=== PATIENT | male | born 1955 | race Caucasian/White ===

== ENCOUNTER 2018-12-22 23:55 | Emergency (ER) | payer BC, OTHER ==
[~2018-12-22] VITALS: Ht 177.8 cm; Wt 113.4 kg
--- OUTSIDE RECORDS SUMMARY | 2018-12-23 00:02 | XMS REPORT | Continuity of Care Document ---
Author Author No Choudhury [facility] No Choudhury [facility] Address Unknown Phone Unavailable Care Team Providers Care Food Server Name Role Phone CAITLYN JO DO PCP Insurance Providers Guarantor Fazal Hobbs V Address [address] [place] [address] Payer [facility] Policy Number [id number] Subscriber's Name Fazal Hobbs V Relationship 01 Self / Same As Patient Group Number [id number] Group Name [id number] Problems Active Problems Medical Problem Onset Date Status A-fib Unknown Chronic Chest pain Unknown Resolved HTN (hypertension) Unknown Chronic Heart palpitations Unknown Acute Hyperlipidemia Unknown Chronic Muscle spasm of left shoulder area ~04/12/2016 Medications Current Home Medications Medication Dose Units Route Directions Days Qty Instructions Start Date Aspirin 81 Mg Tab 81 Mg Oral Daily for Hypertension 30 Tablet 11/13 Atorvastatin Calcium 10 Mg Tab 10 Mg Oral Daily for Hypercholesterolemia 30 Tablet 11/13/15 Cyclobenzaprine Hcl 10 Mg/Nilesh Tab 1 Tab Oral Every 8 Hours As Needed for Spasm 30 Tablet 04/12/16 Hydrochlorothiazide (Esidrix) 25 Mg Tab 25 Mg Oral Daily for Hypertension 30 Tablet 11/13/15 Levothyroxine Sodium (Synthroid) 75 Mcg Tab 75 Mcg Oral Daily for Hypothryroidism 30 Tablet 11/13/15 Lisinopril 10 Mg Tab 10 Mg Oral Daily for Hypertension 30 Tablet Methylprednisolone (Medrol Dosepak) 4 Mg Nilesh 4 Mg Oral As Directed for Inflammation 1 Nilesh take all pills in day's row once daily with food Past Home Medications Medication Directions Ordered Status Oxycodone/Acetaminophen (Percocet 5/325) 1 Tab/1 Un Tab, 1 Tab Oral Every 6 Hours As Needed 07/27/12 Discontinued Family History Relationship Condition Age at Onset Recorded Date/Time 03 Father FH: brain tumor Not Recorded 04/12/2016 3:35pm 03 Father Family history of hypertension Not Recorded 04/12/2016 3:35pm 03 Mother FH: cancer Not Recorded 04/12/2016 3:35pm 03 Mother Family history of hypertension Not Recorded 04/12/2016 3:35pm Social History Social History Problem Response Recorded Date/Time Onset Date Status Hx Alcohol Use No 04/12/2016 3:35pm Not Applicable Not Applicable Hx Substance Use No 04/12/2016 3:35pm Not Applicable Not Applicable Smoking Status Never smoker 04/12/2016 3:35pm Not Applicable Not Applicable Query Response Start Date Stop Date Smoking Status Never smoker Hospital Discharge Instructions Discharge Instructions Provider Instructions Dismiss home You were seen today by JENNA RYAN APRN Follow up with Primary Care Physician in 3-7 days if worsens or does not resolve Rest Ice - Apply ice pack to area of interest - 30 minutes on then 30 minutes off or use heating pad whichever feels best Continue over the counter pain medication as per package directions. Take steroids daily in am with food. Take muscle relaxants as prescribed. Gentle range of motion exercises. PCP Information Caitlyn Jo DO [address] [place] [address] Plan(s) based on screenings Calculated Body Mass Index: 36.10 BMI Follow-up plan: BMI is above normal, follow-up with Primary Care Provider Blood Pressure #1 Blood Pressure Systolic: 142 mm Hg Blood Pressure Diastolic: 78 mm Hg Preventative Blood Pressure Follow-up plan: BP is Pre-Hypertensive, follow-up with Primary Care Provider Plan of Care Discharge Date 04/12/16 4:22pm Instructions/Education Provided Muscle Strain (ED) Musculoskeletal Pain (ED) Prescriptions See Medication Section Functional Status No functional status results. Allergies, Adverse Reactions, Alerts No known allergies. Immunizations Query Response on File Recorded Date/Time Hx Hepatitis A Vaccination Yes 11/13/15 10:38am Vital Signs Acute Vital Signs Vital Response Date/Time Blood Pressure 142/78 mm Hg 04/12/2016 3:37pm Blood Pressure Mean 99 mm Hg 04/12/2016 3:37pm Temperature (Fahrenheit) 97.9 degrees F (96.0 - 99.9) 11/13/2015 10:15pm Temperature (Calculated Celsius) 36.15197 degrees C 11/13/2015 10:15pm Temperature (Calculated Celsius) 36.32531 degrees C (36.4 - 37.5) 04/12/2016 3:37pm Temperature (Fahrenheit) 97.2 degrees F (96.0 - 99.9) 04/12/2016 3:37pm Temperature Source Oral 11/13/2015 10:15pm Temperature Source Oral 11/13/2015 8:13am Pulse Pulse Rate (adult) 64 bpm (60 - 100) 11/13/2015 10:15pm Pulse Rate (adult) 66 bpm (60 - 100) 04/12/2016 3:37pm Pulse Rate: ED 55 bpm 11/13/2015 10:17am Respiratory Rate 18 breaths per minute (10 - 20) 11/13/2015 10:15pm Respiratory Rate 16 bpm (10 - 20) 04/12/2016 3:37pm Height (Feet) 5 ft 04/12/2016 3:37pm Height (Inches) 10.0 in. 04/12/2016 3:37pm Weight (Pounds) 251.5 lbs 04/12/2016 3:37pm Height 5 ft 10 in 04/12/2016 3:37pm Weight 251.50 lb 04/12/2016 3:37pm Body Mass Index 36.1 kg/m^2 04/12/2016 3:37pm Results Laboratory Results Test Name Result Units Flags Reference Collection Date/Time Result Date/ Time Comments White Blood Count 6.8 K/uL 5.0-10.0 11/13/2015 8:20am 11/13/2015 8: 33am Red Blood Count 5.07 M/uL 4.60-5.40 11/13/2015 8:20am 11/13/2015 8: 33am Hemoglobin 14.3 g/dL 14.0-18.0 11/13/2015 8:20am 11/13/2015 8:33am Hematocrit 42.5 % 40.0-54.0 11/13/2015 8:20am 11/13/2015 8:33am Mean Corpuscular Volume 83.8 fL 80.0-94.0 11/13/2015 8:11/13/2015 8:33am Mean Corpuscular Hemoglobin 28.2 pg 26.0-33.0 11/13/2015 8:2015 8:33am Mean Corpuscular Hemoglobin Concent 33.6 g/dL 31.0-36.0 11/13/2015 8: 11/13/2015 8:33am Red Cell Distribution Width 14.4 % 11.5-14.5 11/13/2015 8:2015 8:33am RDW Standard Deviation 43.7 fL 35.1-43.9 11/13/2015 8:11/13/2015 8 :33am Platelet Count 327 K/uL 130-400 11/13/2015 8:11/13/2015 8:33am Mean Platelet Volume 11.6 fL H 7.0-11.0 11/13/2015 8:11/13/2015 8: 33am Neutrophils (%) (Auto) 57.3 % 42.0-75.0 11/13/2015 8:11/13/2015 8: 33am Lymphocytes (%) (Auto) 30.7 % 16.0-44.0 11/13/2015 8:11/13/2015 8: 33am Monocytes (%) (Auto) 8.3 % 2.0-9.0 11/13/2015 8:11/13/2015 8:33am Eosinophils (%) (Auto) 3.2 % 0-7.0 11/13/2015 8:11/13/2015 8:33am Basophils (%) (Auto) 0.4 % 0-1 11/13/2015 8:11/13/2015 8:33am Immature Granulocyte % (Auto) 0.1 % 0-0.5 11/13/2015 8:11/13/2015 8:33am Nucleated Red Blood Cells % 0.0 /100WBC 0-0 11/13/2015 8:2015 8:33am Neutrophils # (Auto) 3.9 K/uL 1.9-8.0 11/13/2015 8:11/13/2015 8: 33am Lymphocytes # (Auto) 2.1 K/uL 0.9-5.2 11/13/2015 8:11/13/2015 8: 33am Monocytes # (Auto) 0.6 K/uL 0.16-1.0 11/13/2015 8:11/13/2015 8: 33am Eosinophils # (Auto) 0.2 K/uL 0-0.8 11/13/2015 8:11/13/2015 8: 33am Basophils # (Auto) 0.0 K/uL 0-0.2 11/13/2015 8:11/13/2015 8:33am Immature Granulocyte # (Auto) 0.01 K/uL 0-0.40 11/13/2015 8:2015 8:33am Nucleated Red Blood Cells # 0.00 K/uL 0.0-0.012 11/13/2015 8:11/13 8:33am Random Glucose 138 mg/dL H 65-115 11/13/2015 8:11/13/2015 9:00am Blood Urea Nitrogen 15 mg/dL 8-25 11/13/2015 8:11/13/2015 9:00am Creatinine 0.97 mg/dL 0.9-1.6 11/13/2015 8:11/13/2015 9:00am Glomerular Filtration Rate Calc 78.68 mL/min 11/13/2015 8:2015 9:00am MULTIPLY RESULT BY 1.210 IF THE PATIENT IS -MALIAN Units are mL/min/1.73 m2 > 60 Normal kidney function 30-59 Moderately decreased kidney function 15-29 Severely decreased kidney function <15 End-stage kidney failure BUN/Creatinine Ratio 15.5 11/13/2015 8:11/13/2015 9:00am Sodium Level 137 mEq/L 133-145 11/13/2015 8:11/13/2015 9:00am Potassium Level 4.5 mEq/L 3.5-5.1 11/13/2015 8:11/13/2015 9:00am Chloride Level 109 mEq/L 98-116 11/13/2015 8:11/13/2015 9:00am Carbon Dioxide Level 26 mEq/L 22-34 11/13/2015 8:11/13/2015 9: 00am Anion Gap 6.5 6-13 11/13/2015 8:11/13/2015 9:00am Calcium Level 8.9 mg/dL 8.2-10.6 11/13/2015 8:11/13/2015 9:00am Cholesterol Level 196 mg/dL 120-200 11/13/2015 8:11/13/2015 12: 05pm Triglycerides Level 111 mg/dL 45-150 11/13/2015 8:11/13/2015 12: 05pm LDL Cholesterol 139 mg/dL H 25-100 11/13/2015 8:11/13/2015 12:05pm HDL Cholesterol 35 mg/dL L 40-80 11/13/2015 8:11/13/2015 12:05pm VLDL Cholesterol 22.2 5-40 11/13/2015 8:11/13/2015 12:05pm Cholesterol Ratio (LDL/HDL) 5.600 11/13/2015 8:11/13/2015 12: 05pm Total Protein 7.4 gm/dL 6.0-8.4 11/13/2015 8:11/13/2015 9:00am Albumin 3.8 gm/dL 3.2-5.0 11/13/2015 8:11/13/2015 9:00am Globulin 3.6 gm/dL H 2.0-3.0 11/13/2015 8:11/13/2015 9:00am Albumin/Globulin Ratio 1.1 L 1.4-2.4 11/13/2015 8:11/13/2015 9: 00am Total Bilirubin 0.6 mg/dL 0.1-1.3 11/13/2015 8:11/13/2015 9:00am Alkaline Phosphatase 58 U/L 35-125 11/13/2015 8:11/13/2015 9:00am Aspartate Amino Transf (AST/SGOT) 15 U/L 5-40 11/13/2015 8:2015 9:00am Alanine Aminotransferase (ALT/SGPT) 19 U/L 40 11/13/2015 8:11/13 9:00am Troponin I 0.00 ng/mL 0.0-0.02 11/13/2015 8:33pm 11/13/2015 9:31pm Thyroid Stimulating Hormone (TSH) 3.62 uIU/ml 0.34-5.60 11/13/2015 8: 20am 11/13/2015 9:38am Procedures No known history of procedures. Encounters Encounter Location Arrival/Admit Date Discharge/Depart Date Attending Provider Departed Clinic No Choudhury [facility] 04/12/16 3:27pm 04/12/16 4: 22pm JENNA RYAN APRN Discharged Inpatient (obs) No [facility] 11/13/15 10:38am 10:42pm ROCHELLE ORTIZ M.D.
--- OUTSIDE RECORDS SUMMARY | 2018-12-23 00:02 | XMS REPORT | Continuity of Care Document ---
Author Author No Choudhury [facility] No Choudhury [facility] Address Unknown Phone Unavailable Care Team Providers Care Hoeing Row Boss Name Role Phone CAROL VEGAS M.D. PCP Insurance Providers Payer Name Policy Number Subscriber Name Relationship Blue Cross [facility] [id number] Fazal Hobbs V 01 Self / Same As Patient Advance Directives Directive Response Recorded Date/Time Patient Resuscitation Status Full Code 11/13/15 10:38am Advance Directives No 11/13/15 10:38am Living Will No 11/13/15 10:38am Health Care Power of Loss Prevention Agent No 11/13/15 10:38am Chief Complaint and Reason for Visit Chief Complaint chest pain Reason for Visit A-fib Chest pain HTN (hypertension) Heart palpitations Hyperlipidemia Problems Active Problems Medical Problem Onset Date Status A-fib Unknown Chronic Chest pain Unknown Resolved HTN (hypertension) Unknown Chronic Heart palpitations Unknown Acute Hyperlipidemia Unknown Chronic Medications Current Home Medications Medication Dose Units Route Directions Days/Qty Instructions Start Date Hydrochlorothiazide 25 Mg 25 Mg Oral Daily for Hypertension Atorvastatin Calcium 10 Mg 10 Mg Oral Daily for Hypercholesterolemia 11/13/15 Aspirin 81 Mg 81 Mg Oral Daily for Hypertension 11/13/15 Levothyroxine Sodium 75 Mcg 75 Mcg Oral Daily for Hypothryroidism 11/13/15 Lisinopril 10 Mg 10 Mg Oral Daily for Hypertension 11/13/15 Past Home Medications Medication Directions Ordered Status Oxycodone/Acetaminophen 1 Tab/1 Un Tab, 1 Tab Oral Every 6 Hours As Needed Discontinued Social History Social History Problem Response Recorded Date/Time Hx Alcohol Use No 11/13/2015 11:39am Hx Substance Use No 11/13/2015 11:39am Smoking Status Never smoker 11/13/2015 9:36pm Query Response Start Date Stop Date Smoking Status Never smoker Hospital Discharge Instructions Medication Information Medication information Medications taken today: Nitroglycerin 0.4mg SL 0820 ASA 324mg PO 0822 Acetominophen 650mg PO 1000 Lipitor 10mg PO 1145 Lisinopril 10mg PO 1145 HCTZ 25mg PO 1145 Levothyroxine 75mcg PO 1200 Discharge Instructions Provider Instructions Dismiss Date: Nov 13, 2015 Dismiss: Home Diet: Return to Previous Activity: As Tolerated Physician Follow-up Appt #1: Establish with a primary care doctor F/U Appt: One Week Discharge Instructions 1. Establish with a primary care doctor within 1 week 2. Return to the hospital for evaluation if any concerns 3. Your prescriptions have been sent to [facility] in [place] Signs/Symptoms -notify Doctor: Chest Pain, Nausea/Vomiting, Shortness of Breath , Numbness/Tingling Nursing Instructions Physician Follow-up Appointment: Establish with a primary care doctor Signs and Symptoms to notify your Doctor about:: Chest Pain, Nausea/Vomiting, Shortness of Breath, Numbness/Tingling Diet: Return to Previous Activity: As Tolerated Pain Management Brochure given: Yes Medications returned: N/A Valuables returned from Safe: N/A Hearing Aid(s) returned: N/A Plan of Care Discharge Date 11/13/15 10:42pm Disposition 01 HOME, SELF-CARE Instructions/Education Provided Chest Pain (DC) Prescriptions See Medication Section Care Plan and Goals See Discharge Instructions Section Functional Status Query Response Date Recorded Overall Activities Daily Living Ability/Staff Support Independ/No setup help November 13, 2015 10:38am Oral Care Ability/Staff Support Independ/No setup help November 13, 2015 7:00pm Memory Description 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 Immunizations No immunization records. Vital Signs Acute Vital Signs Vital Response Date/Time Blood Pressure 130/68 mm Hg 11/13/2015 10:15pm Blood Pressure Mean 88 mm Hg 11/13/2015 10:15pm Temperature (Fahrenheit) 97.9 degrees F (96.0 - 99.9) 11/13/2015 10:15pm Temperature (Calculated Celsius) 36.20930 degrees C 11/13/2015 10:15pm Temperature Source Oral 11/13/2015 10:15pm Temperature Source Oral 11/13/2015 8:13am Pulse Pulse Rate (adult) 64 bpm (60 - 100) 11/13/2015 10:15pm Pulse Rate: ED 55 bpm 11/13/2015 10:17am Respiratory Rate 18 breaths per minute (10 - 20) 11/13/2015 10:15pm Height (Feet) 5 ft 11/13/2015 10:38am Height (Inches) 10.0 in. 11/13/2015 10:38am Weight (Pounds) 250.5 lbs 11/13/2015 10:38am Height 5 ft 10 in Weight 250 lb Body Mass Index 35.9 kg/m^2 Results Laboratory Results Test Name Result Units Flags Reference Collection Date/Time Result Date/ Time Comments White Blood Count 6.8 K/uL 5.0-10.0 11/13/2015 8:20am 11/13/2015 8: 33am Red Blood Count 5.07 M/uL 4.60-5.40 11/13/2015 8:20am 11/13/2015 8: 33am Hemoglobin 14.3 g/dL 14.0-18.0 11/13/2015 8:20am 11/13/2015 8:33am Hematocrit 42.5 % 40.0-54.0 11/13/2015 8:20am 11/13/2015 8:33am Mean Corpuscular Volume 83.8 fL 80.0-94.0 11/13/2015 8:20am 11/13/2015 8:33am Mean Corpuscular Hemoglobin 28.2 pg 26.0-33.0 11/13/2015 8:20am 2015 8:33am Mean Corpuscular Hemoglobin Concent 33.6 g/dL [...] Eosinophils # (Auto) 0.2 K/uL 0-0.8 11/13/2015 8:20am 11/13/2015 8: 33am Basophils # (Auto) 0.0 K/uL 0-0.2 11/13/2015 8:2011/13/2015 8:33am Immature Granulocyte # (Auto) 0.01 K/uL 0-0.40 11/13/2015 8:202015 8:33am Nucleated Red Blood Cells # 0.00 K/uL 0.0-0.012 11/13/2015 8:11/13 8:33am Random Glucose 138 mg/dL H 65-115 11/13/2015 8:2011/13/2015 9:00am Blood Urea Nitrogen 15 mg/dL 8-25 11/13/2015 8:11/13/2015 9:00am Creatinine 0.97 mg/dL 0.9-1.6 11/13/2015 8:11/13/2015 9:00am Glomerular Filtration Rate Calc 78.68 mL/min 11/13/2015 8:2015 9:00am MULTIPLY RESULT BY 1.210 IF THE PATIENT IS -LIBER[place] Units are mL/min/1.73 m2 > 60 Normal [...] 9: 00am Anion Gap 6.5 6-13 11/13/2015 8:2011/13/2015 9:00am Calcium Level 8.9 mg/dL 8.2-10.6 11/13/2015 8:2011/13/2015 9:00am Cholesterol Level 196 mg/dL 120-200 11/13/2015 8:2011/13/2015 12: 05pm Triglycerides Level 111 mg/dL 45-150 11/13/2015 8:2011/13/2015 12: 05pm LDL Cholesterol 139 mg/dL H 25-100 11/13/2015 8:2011/13/2015 12:05pm HDL Cholesterol 35 mg/dL L 40-80 11/13/2015 8:2011/13/2015 12:05pm VLDL Cholesterol 22.2 5-40 11/13/2015 8:11/13/2015 12:05pm Cholesterol Ratio (LDL/HDL) 5.600 11/13/2015 8:2011/13/2015 12: 05pm Total Protein 7.4 gm/dL 6.0-8.4 11/13/2015 8:11/13/2015 9:00am Albumin 3.8 gm/dL 3.2-5.0 11/13/2015 8:11/13/2015 9:00am Globulin 3.6 gm/dL H 2.0-3.0 11/13/2015 8:11/13/2015 9:00am Albumin/Globulin Ratio 1.1 L 1.4-2.4 11/13/2015 8:2011/13/2015 9: 00am Total Bilirubin 0.6 mg/dL 0.1-1.3 11/13/2015 8:2011/13/2015 9:00am Alkaline Phosphatase 58 U/L 35-125 11/13/2015 8:20am 11/13/2015 9:00am Aspartate Amino Transf (AST/SGOT) 15 U/L 5-40 11/13/2015 8:20am 2015 9:00am Alanine Aminotransferase (ALT/SGPT) 19 U/L 5-40 11/13/2015 8:20am 11/13 9:00am Troponin I 0.00 ng/mL 0.0-0.02 11/13/2015 8:33pm 11/13/2015 9:31pm Thyroid Stimulating Hormone (TSH) 3.62 uIU/ml 0.34-5.60 11/13/2015 8: 20am 11/13/2015 9:38am Procedures No known history of procedures. Encounters Encounter Location Arrival/Admit Date Discharge/Depart Date Attending Provider Discharged Inpatient (obs) No Choudhury [facility] 11/13/15 10:38am 10:42pm ROCHELLE ORTIZ M.D. Recent Diagnosis A-fib Chest pain HTN (hypertension) Heart palpitations Hyperlipidemia
--- OUTSIDE RECORDS SUMMARY | 2018-12-23 00:03 | XMS REPORT | Continuity of Care Document ---
Author Author No Choudhury [facility] No Choudhury [facility] Address Unknown Phone Unavailable Care Team Providers Care Adjunct Faculty Instructor Name Role Phone CAITLYN JO DO PCP Insurance Providers Guarantor Fazal Hobbs V Address [address] [place] [address] Payer [facility] Policy Number [id number] Subscriber's Name Fazal Hobbs V Relationship 01 Self / Same As Patient Group Number [id number] Group Name [id number] Problems Active Problems Medical Problem Onset Date Status A-fib Unknown Chronic Chest pain Unknown Resolved HTN (hypertension) Unknown Chronic Heart palpitations Unknown Acute Hyperlipidemia Unknown Chronic Muscle spasm of left shoulder area ~04/12/2016 Acute Medications Current Home Medications Medication Dose Units Route Directions Days Qty Instructions Start Date Aspirin 81 Mg Tab 81 Mg Oral Daily for Hypertension 30 Tablet 11/13 Atorvastatin Calcium 10 Mg Tab 10 Mg Oral Daily for Hypercholesterolemia 30 Tablet 11/13/15 Cyclobenzaprine Hcl 10 Mg/Nilesh Tab 1 Tab Oral Every 8 Hours As Needed for Spasm 30 Tablet 04/12/16 Levothyroxine Sodium (Synthroid) 75 Mcg Tab 75 Mcg Oral Daily for Hypothryroidism 30 Tablet 11/13/15 Lisinopril 10 Mg Tab 10 Mg Oral Daily for Hypertension 30 Tablet Past Home Medications Medication Directions Ordered Status Hydrochlorothiazide (Esidrix) 25 Mg Tab, 25 Mg Oral Daily for Hypertension Discontinued Oxycodone/Acetaminophen (Percocet) 1 Tab/1 Un Tab, 1 Tab Oral [...] Date/Time Onset Date Status Hx Alcohol Use Y rarely 12/30/2016 4:01pm Not Applicable Not Applicable Hx Substance Use No 12/30/2016 4:01pm Not Applicable Not Applicable Smoking Status Never smoker 12/30/2016 4:01pm Not Applicable Not Applicable Query Response Start Date Stop Date Smoking Status Never smoker Hospital Discharge Instructions Discharge Instructions Provider Instructions Rest Epsom salt soaks at least once a day for 15 minutes, gentle stretching and range of motion following soaks. Compression - Apply Trip Wrap as desired to area of interest Elevate - Keep area elevated when sitting to decrease pain and swelling Ibuprofen three times a day to help with discomfort and swelling If no improvement in symptoms by mid week next week please follow up with PCP for further assessment Dismiss home You were seen today by HANNAH GUERRA APRN PCP Information Caitlyn Jo, [address] [place] [address] Plan(s) based on screenings Calculated Body Mass Index: 37.15 BMI Follow-up plan: BMI is above normal, follow-up with Primary Care Provider Blood Pressure #1 Blood Pressure Systolic: 157 mm Hg Blood Pressure Diastolic: 77 mm Hg Fall risk screen Follow-up plan: Follow up with your Primary Care Provider to consider: : Vitamin D supplementation and : balance, strength, and gait training Plan of Care Discharge Date 12/30/16 4:40pm Instructions/Education Provided Foot Sprain (ED) Prescriptions See Medication Section Functional Status No functional status results. Allergies, Adverse Reactions, Alerts No known allergies. Immunizations Query Response on File Recorded Date/Time Hx Hepatitis A Vaccination Yes 11/13/15 10:38am Vital Signs Acute Vital Signs Vital Response Date/Time Blood Pressure 157/77 mm Hg 12/30/2016 4:03pm Blood Pressure Mean 103 mm Hg 12/30/2016 4:03pm Temperature (Fahrenheit) 97.9 degrees F (96.0 - 99.9) 11/13/2015 10:15pm Temperature (Calculated Celsius) 36.41858 degrees C 11/13/2015 10:15pm Temperature (Calculated Celsius) 36.62759 degrees C (36.4 - 37.5) 12/30/2016 4:03pm Temperature (Fahrenheit) 97.8 degrees F (96.0 - 99.9) 12/30/2016 4:03pm Temperature Source Oral 11/13/2015 10:15pm Temperature Source Oral 11/13/2015 8:13am Pulse Pulse Rate (adult) 60 bpm (60 - 100) 09/30/2016 10:12am Pulse Rate (adult) 65 bpm (60 - 100) 12/30/2016 4:03pm Pulse Rate: ED 55 bpm 11/13/2015 10:17am Respiratory Rate 18 breaths per minute (10 - 20) 11/13/2015 10:15pm Respiratory Rate 16 bpm (10 - 20) 12/30/2016 4:03pm Height (Feet) 5 ft 12/30/2016 4:03pm Height (Inches) 10.5 in. 12/30/2016 4:03pm Weight (Pounds) 262.1 lbs 12/30/2016 4:03pm Height 5 ft 10.5 in 12/30/2016 4:03pm Weight 262.10 lb 12/30/2016 4:03pm Body Mass Index 37.1 kg/m^2 12/30/2016 4:03pm Results Laboratory Results Test Name Result Units [...] Monocytes # (Auto) 0.6 K/uL 0.16-1.0 11/13/2015 8:2011/13/2015 8: 33am Eosinophils # (Auto) 0.2 K/uL 0-0.8 11/13/2015 8:2011/13/2015 8: 33am Basophils # (Auto) 0.0 K/uL [...] RESULT BY 1.210 IF THE PATIENT IS -KAZAKH Units are mL/min/1.73 m2 > 60 Normal [...] 9:00am Aspartate Amino Transf (AST/SGOT) 15 U/L 11/13/2015 8:2015 9:00am Alanine Aminotransferase (ALT/SGPT) 19 U/L 11/13/2015 8:11/13 9:00am Troponin I 0.00 ng/mL 0.0-0.02 11/13/2015 8:33pm 11/13/2015 9:31pm Thyroid Stimulating Hormone (TSH) 3.62 uIU/ml 0.34-5.60 11/13/2015 8: 20am 11/13/2015 9:38am Procedures No known history of procedures. Encounters Encounter Location Arrival/Admit Date Discharge/Depart Date Attending Provider Departed Clinic [facility] 12/30/16 3:52pm 12/30/16 4: 40pm HANNAH GUERRA APRN Departed Clinic [facility] 09/30/16 8:15am 09/30/16 10: 14am YARI MURPHY M.D. Departed Clinic [facility] 04/12/16 3:27pm 04/12/16 4: 22pm JENNA RYAN APRN Discharged Inpatient (obs) [facility] 11/13/15 10:38am 10:42pm ROCHELLE ORTIZ M.D.
--- OUTSIDE RECORDS SUMMARY | 2018-12-23 00:03 | XMS REPORT | Continuity of Care Document ---
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 Plan of Care Discharge Date 09/30/16 10:14am Prescriptions See Medication Section Functional Status No functional status results. Allergies, Adverse Reactions, Alerts No known allergies. Immunizations Query Response on File Recorded Date/Time Hx Hepatitis A Vaccination Yes 11/13/15 10:38am Vital Signs Acute Vital Signs Vital Response Date/Time Blood Pressure 112/71 mm Hg 09/30/2016 10:12am Blood Pressure Mean 99 mm Hg 04/12/2016 3:37pm Temperature (Fahrenheit) 97.9 degrees F (96.0 - 99.9) 11/13/2015 10:15pm Temperature (Calculated Celsius) 36.64842 degrees C 11/13/2015 10:15pm Temperature (Calculated Celsius) 36.81204 degrees C (36.4 - 37.5) 04/12/2016 3:37pm Temperature (Fahrenheit) 97.2 degrees F (96.0 - 99.9) 04/12/2016 3:37pm Temperature Source Oral 11/13/2015 10:15pm Temperature Source Oral 11/13/2015 8:13am Pulse Pulse Rate (adult) 60 bpm (60 - 100) 09/30/2016 10:12am Pulse Rate (adult) 66 bpm (60 - 100) 04/12/2016 3:37pm Pulse Rate: ED 55 bpm 11/13/2015 10:17am Respiratory Rate 18 breaths per minute (10 - 20) 11/13/2015 10:15pm Respiratory Rate 16 bpm (10 - 20) 04/12/2016 3:37pm Height (Feet) 5 ft 04/12/2016 3:37pm Height (Inches) 10.0 in. 04/12/2016 3:37pm Weight (Pounds) 251.5 lbs 04/12/2016 3:37pm Results Laboratory Results Test Name Result Units Flags Reference Collection Date/Time Result Date/ Time Comments White Blood Count 6.8 K/uL 5.0-10.0 11/13/2015 8:am 11/13/2015 8: 33am Red Blood Count 5.07 M/uL 4.60-5.40 11/13/2015 8:11/13/2015 8: 33am Hemoglobin 14.3 g/dL 14.0-18.0 11/13/2015 8:11/13/2015 8:33am Hematocrit 42.5 % 40.0-54.0 11/13/2015 8:11/13/2015 8:33am Mean Corpuscular Volume 83.8 fL 80.0-94.0 [...] RESULT BY 1.210 IF THE PATIENT IS -AFGHAN Units are mL/min/1.73 m2 > 60 Normal [...] 05pm Total Protein 7.4 gm/dL 6.0-8.4 11/13/2015 8:20am 11/13/2015 9:00am Albumin 3.8 gm/dL 3.2-5.0 11/13/2015 8:20am 11/13/2015 9:00am Globulin 3.6 gm/dL H 2.0-3.0 11/13/2015 8:20am 11/13/2015 9:00am Albumin/Globulin Ratio 1.1 L 1.4-2.4 11/13/2015 8:20am 11/13/2015 9: 00am Total Bilirubin 0.6 mg/dL 0.1-1.3 11/13/2015 8:20am 11/13/2015 9:00am Alkaline Phosphatase 58 U/L 35-125 11/13/2015 [...] Date Discharge/Depart Date Attending Provider Departed Clinic [facility] 09/30/16 8:15am 09/30/16 10: 14am YARI MURPHY M.D. Departed Clinic [facility] 04/12/16 3:27pm 04/12/16 4: 22pm JENNA RYAN APRN Discharged Inpatient (obs) [facility] 11/13/15 10:38am 10:42pm ROCHELLE ORTIZ M.D.
--- NOTE | 2018-12-23 00:11 | ED Chest Pain ---
General Stated Complaint: CP Source: patient, EMS, spouse Exam Limitations: no limitations History of Present Illness Date Seen by Provider: Dec 23, 2018 Time Seen by Provider: 23:50 Initial Comments Patient presents to ER by EMS with chief complaint that he was having some chest tightness and so he checked his blood pressure was high about 170/85. He says he stopped taking hydrochlorothiazide about a week and a half ago on his primary care doctor's orders secondary to they thought it might of been making his gout worse. He was told to just check his blood pressure every 3 days he's been doing that and has been steadily going up over the past week. He does not have any history of coronary artery disease or heart failure. He felt chest tightness across the top of his chest that does not radiate to the shoulders neck or jaw. He is not having any nausea sweats fevers chills cough or abdominal pain. He does not smoke cigarettes drink or use drugs. He does have a history of hypertension, no history of hyperlipidemia or hypothyroidism. He went ahead and took another tablet of hydrochlorothiazide just before the EMS arrived and then EMS also gave him a nitroglycerin tablet which brought his pressure down to about 135 systolic over 75 and his chest tightness went away. It started about 8:30- 9:00. Allergies and Home Medications Allergies Coded Allergies: No Known Drug Allergies (Unverified , 12/23/18) Patient Home Medication List Home Medication List Reviewed: Yes Review of Systems Review of Systems Constitutional: No chills, No diaphoresis, No fever, No malaise EENTM: No Blurred Vision, No Double Vision Respiratory: Denies Cough, Denies Shortness of Air, Denies Wheezing Cardiovascular: See HPI; Denies Chest Pain, Denies Edema, Denies Lightheadedness, Denies Palpitations, Denies Syncope Gastrointestinal: Denies Constipated, Denies Diarrhea, Denies Nausea Genitourinary: Denies Burning, Denies Drainage Past Evxuojq-Xmolew-Oaheko Hx Patient Social History Alcohol Use: Denies Use Recreational Drug Use: No Smoking Status: Never a Smoker Recent Foreign Travel: No Contact w/Someone Who Travel: No Physical Exam Vital Signs Vital Signs - First Documented Capillary Refill : Height, Weight, BMI Height: '" Weight: lbs. oz. kg; BMI Method: General Appearance: No Apparent Distress, WD/WN HEENT: PERRL/EOMI, Normal ENT Inspection, Pharynx Normal, Moist Mucous Membranes Respiratory: Chest Non Tender, Lungs Clear, Normal Breath Sounds, No Accessory Muscle Use, No Respiratory Distress Cardiovascular: Regular Rate, Rhythm, No Edema, Normal Peripheral Pulses Gastrointestinal: Normal Bowel Sounds, Non Tender, Soft Extremity: Normal Capillary Refill, No Pedal Edema Neurologic/Psychiatric: Alert, Oriented x3, No Motor/Sensory Deficits Progress/Results/Core Measures Results/Orders Lab Results Laboratory Tests Test 12/23/18 00:08 12/23/18 00:55 Range/Units White Blood Count 11.1 H 4.3-11.0 10^3/uL Red Blood Count 4.27 L 4.35-5.85 10^6/uL Hemoglobin 11.9 L 13.3-17.7 G/DL Hematocrit 36 L 40-54 % Mean Corpuscular Volume 85 80-99 FL Mean Corpuscular Hemoglobin 28 25-34 PG Mean Corpuscular Hemoglobin Concent 33 32-36 G/DL Red Cell Distribution Width 14.5 10.0-14.5 % Platelet Count 327 130-400 10^3/uL Mean Platelet Volume 10.5 H 7.4-10.4 FL Neutrophils (%) (Auto) 61 42-75 % Lymphocytes (%) (Auto) 23 12-44 % Monocytes (%) (Auto) 8 0-12 % Eosinophils (%) (Auto) 8 0-10 % Basophils (%) (Auto) 0 0-10 % Neutrophils # (Auto) 6.7 1.8-7.8 X 10^3 Lymphocytes # (Auto) 2.5 1.0-4.0 X 10^3 Monocytes # (Auto) 0.9 0.0-1.0 X 10^3 Eosinophils # (Auto) 0.9 H 0.0-0.3 10^3/uL Basophils # (Auto) 0.0 0.0-0.1 10^3/uL Prothrombin Time 13.3 12.2-14.7 SEC INR Comment 1.0 0.8-1.4 Activated Partial Thromboplast Time 30 24-35 SEC Sodium Level 143 135-145 MMOL/L Potassium Level 3.9 3.6-5.0 MMOL/L Chloride Level 112 H 98-107 MMOL/L Carbon Dioxide Level 22 21-32 MMOL/L Anion Gap 9 5-14 MMOL/L Blood Urea Nitrogen 14 7-18 MG/DL Creatinine 1.03 0.60-1.30 MG/DL Estimat Glomerular Filtration Rate > 60 BUN/Creatinine Ratio 14 Glucose Level 139 H 70-105 MG/DL Calcium Level 9.3 8.5-10.1 MG/DL Corrected Calcium 9.4 8.5-10.1 MG/DL Magnesium Level 2.3 1.8-2.4 MG/DL Total Bilirubin 0.3 0.1-1.0 MG/DL Aspartate Amino Transf (AST/SGOT) 17 5-34 U/L Alanine Aminotransferase (ALT/SGPT) 20 0-55 U/L Alkaline Phosphatase 78 40-136 U/L Myoglobin 60.8 10.0-92.0 NG/ML Troponin I < 0.028 < 0.028 <0.028 NG/ML Total Protein 6.8 6.4-8.2 GM/DL Albumin 3.9 3.2-4.5 GM/DL My Orders Orders - DILSHAD,ABDI J Cbc With Automated Diff (12/23/18 00:06) Magnesium (12/23/18 00:06) Chest 1 View, Ap/Pa Only (12/23/18 00:06) Ekg Tracing (12/23/18 00:06) Cardiac Profile 1 (12/23/18 00:06) Comprehensive Metabolic Panel (12/23/18 00:06) Myoglobin Serum (12/23/18 00:06) Protime With Inr (12/23/18 00:06) Partial Thromboplastin Time (12/23/18 00:06) O2 (12/23/18 00:06) Monitor-Rhythm Ecg Trace Only (12/23/18 00:06) Lipid Panel (12/24/18 06:00) Saline Lock/Iv-Start (12/23/18 00:06) Troponin I (12/23/18 01:00) Vital Signs/I&O 12/22/18 12/22/18 12/22/18 23:56 23:56 23:56 Temp 97.8 Pulse 67 Resp 18 B/P (MAP) 176/94 (121) Pulse Ox 96 96 O2 Delivery Nasal Cannula Nasal Cannula Nasal Cannula O2 Flow Rate 2.00 2.0 2.0 Progress Progress Note : Time: 01:40 Progress Note His chest tightness is most likely related to his hypertension. His hypertension resolved after he took hydrochlorothiazide. He doesn't have any history of coronary artery disease but he does prompt us to check troponins. He has already received aspirin. Nitroglycerin helped his tightness and his pressure go down both. Chest tightness is reproducible to direct palpation. ED ACS 10 points. Low risk by the EDACS Score. If the patient also has: (1) EKG without new ischemic changes and (2) negative initial and 2-hour troponins, then this patient is safe for discharge to early outpatient follow-up investigation (or proceed to earlier inpatient testing). If EKG with ischemic changes or positive troponin, they are not low risk and require normal risk stratification. Initial ECG Impression Date: Dec 23, 2018 Initial ECG Impression Time: 23:56 Initial ECG Rate: 65 Initial ECG Rhythm: Normal Sinus Initial ECG Intervals: Normal Initial ECG Impression: Normal, Nonspecific Changes Comment No significant ST elevation or depression. Diagnostic Imaging Diagonstic Imaging: Xray Plain Films/CT/US/NM/MRI: chest Comments No acute cardiopulmonary processes seen on one view chest x-ray. Reviewed: Reviewed by Me Departure Impression Primary Impression: Hypertension Qualified Codes: I10 - Essential (primary) hypertension Additional Impression: Chest tightness or pressure Disposition: 01 HOME, SELF-CARE Condition: Stable Departure-Patient Inst. Decision time for Depature: 01:43 Referrals: [facility] (PCP/Family) Primary Care Physician Adela MAKI MD Patient Instructions: Chest Pain (DC) Add. Discharge Instructions: Tuesday morning call the abap developer Dr. Maki and request a follow-up appointment that week. Double up your lisinopril to 20 mg a day. Check your resting blood pressure every other day and take that information with you to the heart doctor. Follow-up the next couple weeks with primary care. If you begin to have chest pain you should report to the nearest ER again. Copy Copies To 1: Adela MAKI MD, TITUS J Dec 23, 2018 00:11
[2018-12-23 00:19] LABS: BASOPHILS % (AUTO) 0 % (0-10); EOSINOPHILS # (AUTO) 0.9 10^3/uL (0.0-0.3); EOSINOPHILS % (AUTO) 8 % (0-10); HEMATOCRIT 36 % (40-54); HEMOGLOBIN 11.9 G/DL (13.3-17.7); LYMPHOCYTES # (AUTO) 2.5 X 10^3 (1.0-4.0); LYMPHOCYTES % (AUTO) 23 % (12-44); MEAN CORPUSCULAR HEMOGLOBIN 28 PG (25-34); MEAN CORPUSCULAR HGB CONC 33 G/DL (32-36); MEAN CORPUSCULAR VOLUME 85 FL (80-99); MEAN PLATELET VOLUME 10.5 FL (7.4-10.4); MONOCYTES # (AUTO) 0.9 X 10^3 (0.0-1.0); MONOCYTES % (AUTO) 8 % (0-12); NEUTROPHILS # (AUTO) 6.7 X 10^3 (1.8-7.8); NEUTROPHILS % (AUTO) 61 % (42-75); PLATELET COUNT 327 10^3/uL (130-400); RED CELL DISTRIBUTION WIDTH 14.5 % (10.0-14.5); WHITE BLOOD COUNT 11.1 10^3/uL (4.3-11.0)
[2018-12-23 00:30] LABS: PROTHROMBIN TIME PATIENT 13.3 SEC (12.2-14.7)
[2018-12-23 00:39] LABS: ALANINE AMINOTRANSFERASE 20 U/L (0-55); ALBUMIN 3.9 GM/DL (3.2-4.5); ALKALINE PHOSPHATASE 78 U/L (40-136); BILIRUBIN,TOTAL 0.3 MG/DL (0.1-1.0); BUN/CREATININE RATIO 14; CALCIUM 9.3 MG/DL (8.5-10.1); CARBON DIOXIDE 22 MMOL/L (21-32); CHLORIDE 112 MMOL/L (98-107); CREATININE SERUM 1.03 MG/DL (0.60-1.30); GFR ESTIMATED > 60; GLUCOSE 139 MG/DL (70-105); MAGNESIUM 2.3 MG/DL (1.8-2.4); POTASSIUM 3.9 MMOL/L (3.6-5.0); SODIUM 143 MMOL/L (135-145); TOTAL PROTEIN 6.8 GM/DL (6.4-8.2)
[2018-12-23 00:46] LABS: MYOGLOBIN SERUM 60.8 NG/ML (10.0-92.0)
[2018-12-23 01:58] VITALS: BP 128/67
--- NOTE | 2018-12-23 06:45 | Diagnostic Imaging Report ---
Portable erect AP chest at 1219 hours. INDICATION: Chest pain. There are no prior studies available for comparison. FINDINGS: This exam is less than optimal due to shallow inspiration. Even allowing for this technical factor, the heart is enlarged. The lungs were visualized are clear. There is no sign of failure, pneumonia or pleural effusion. Mediastinum is not widened. The osseous structures are intact. IMPRESSION: 1. There is cardiomegaly, but there is no evidence for an acute cardiopulmonary abnormality on this suboptimal exam. 2. If clinical concern regarding an underlying abnormality persists, then followup PA and lateral chest would be recommended for further study. Dictated by: Dictated on workstation # [id number]
== END 2018-12-23 01:58 | disposition home or self-care (01) ==
LOC: ER 23:59
DX: I10 Essential (primary) hypertension (principal); R07.89 Other chest pain
CPT/HCPCS: 36415; 71045; 80053; 83735; 83874; 84484; 85025; 85610; 85730; 93041

== ENCOUNTER → 2019-01-01 | Outpatient (CLI) | payer BC | LOC: CARD 11:28 | PROVIDERS: ATTEND Internal Medicine Interventional Cardiology | DX: R00.2 Palpitations (principal); E78.5 Hyperlipidemia, unspecified; I10 Essential (primary) hypertension; R07.9 Chest pain, unspecified | CPT/HCPCS: 93225; 93226 ==

== ENCOUNTER 2019-01-04 07:02 | Outpatient (RCR) | payer BC ==
[~2019-01-04] VITALS: Ht 177.8 cm; Wt 118.4 kg
[2019-01-04] MEDS ORDERED: CATHETER FLUSH 10 ML SYR IV PRN (07:45)
[2019-01-04] MEDS ORDERED: REGADENOSON 0.4 MG/5 ML SYR (LEXISCAN) IV ONE ×2 (08:15→09:10)
[2019-01-04 09:13] VITALS: BP 133/88
[2019-01-04 09:15] VITALS: BP 146/76
--- NOTE | 2019-01-13 15:46 | Cardiology Stress Test Report ---
Stress Test Report Type of NM Stress Test: Test Type: LEXISCAN 0.4MG/5ML Date of Procedure/Referring: Date of Procedure: Jan 04, 2019 PCP Adela Maki MD Admitting Physician [facility] Indications: Palpitations Baseline Heart Rate: 67 Baseline Blood Pressure: Blood Pressure Systolic: 146 Blood Pressure Diastolic: 76 Baseline EKG: Baseline EKG: sinus rhythm Summary & Conclusion: Summary: The patient was brought to the stress lab after informed consent was taken. Stress test was performed according to the Lexiscan protocol. 0.4 mg of IV Lexiscan was given. Low-grade exercise was performed. Baseline EKG showed sinus rhythm at 67 BPM. Initial blood pressure was 133/88 mmHg. Maximum heart rate was 72 bpm and blood pressure 132/76 mmHg. Patient did not have any chest pain, arrhythmias or ST segment changes during the stress test. 10.1 mCi of Myoview were given for rest imaging and 30 mCi of Myoview given for stress imaging. Transient ischemic dilatation score 0.94, EF 71 percent. Normal wall motion. Normal myocardial perfusion imaging during rest and stress. Conclusion: Pharmacological stress test was negative for ischemia. Normal LV function with no wall motion abnormalities. Normal myocardial perfusion imaging during rest and stress. Adela MAKI MD Jan 13, 2019 15:46
== END 2019-04-04 | disposition home or self-care (01) ==
LOC: CARD 07:02
PROVIDERS: ATTEND Internal Medicine Interventional Cardiology
DX: R00.2 Palpitations (principal); R07.9 Chest pain, unspecified; E78.5 Hyperlipidemia, unspecified; I10 Essential (primary) hypertension
CPT/HCPCS: 78452; 93017; 93270